=== PATIENT | male | born 1990 | race Two or more races ===

== ENCOUNTER 2021-05-07 09:11 | Emergency (ER) | payer OTHER ==
[~2021-05-07] VITALS: Ht 170.2 cm; Wt 77.1 kg
== END 2021-05-07 11:22 | disposition home or self-care (01) ==
LOC: ER 09:11
DX: B34.9 Viral infection, unspecified (principal); J06.9 Acute upper respiratory infection, unspecified; Z03.818 Encounter for observation for suspected exposure to other biological agents ruled out